=== PATIENT | female | born 1970 | race Two or more races ===

== ENCOUNTER 2019-06-14 22:26 | Emergency (ER) | payer OTHER ==
[~2019-06-14] VITALS: Ht 154.9 cm; Wt 47.6 kg
[2019-06-14] MEDS ORDERED: SYNTHROID88 MCG ×2 (22:32→22:34)
== END 2019-06-15 01:39 | disposition home or self-care (01) ==
LOC: ER 22:26
DX: T58.8X4A Toxic effect of carbon monoxide from other source, undetermined, initial encounter (principal); R11.2 Nausea with vomiting, unspecified; Y92.811 Bus as the place of occurrence of the external cause